=== PATIENT | male | born 1995 | race Caucasian/White ===

== ENCOUNTER 2019-06-02 18:18 | Emergency (ER) | payer MEDICAID ==
[~2019-06-02] VITALS: Ht 172.7 cm; Wt 79.8 kg
[2019-06-02 18:57] VITALS: Ht 172.7 cm; Wt 79.8 kg
[2019-06-02 19:57] VITALS: BP 126/78
[2019-06-02 20:02] LABS: microscopic required? NO
[2019-06-02 20:27] LABS: urine erythrocyte NEGATIVE (NEGATIVE)
== END 2019-06-02 19:57 | disposition home or self-care (01) ==
LOC: ED 18:18
PROVIDERS: Emergency Medicine
DX: I88.9 Nonspecific lymphadenitis, unspecified (principal)
CPT/HCPCS: 87491; 87591